=== PATIENT | female | born 2000 | race Caucasian/White ===

== ENCOUNTER 2023-12-27 12:33 | Outpatient (CLI) | payer BC, SELFPAY | END 2023-12-27 12:34 | disposition home or self-care (01) | LOC: NFLDREF 12-28 05:57 | PROVIDERS: Visit Provider Nurse Practitioner | DX: J02.9 Acute pharyngitis, unspecified (principal) | CPT/HCPCS: 87651 ==

== ENCOUNTER 2024-06-13 14:59 | Outpatient (CLI) | payer BC, SELFPAY | END 2024-06-13 15:00 | disposition home or self-care (01) | PROVIDERS: Visit Provider Registered Nurse | DX: R53.83 Other fatigue (principal) | CPT/HCPCS: 82728; 83516; 84443 ==